=== PATIENT | female | born 1935 | race Caucasian/White ===

== ENCOUNTER 2017-07-24 11:42 | Outpatient (CLI) | payer MEDICARE, BC | END 2017-07-24 11:43 | disposition home or self-care (01) | LOC: BICMAMMO 11:42 | PROVIDERS: ATTEND Family Medicine | DX: Z12.31 Encounter for screening mammogram for malignant neoplasm of breast (principal) | CPT/HCPCS: 77063; 77067 ==

== ENCOUNTER 2019-03-15 14:21 | Inpatient (IN) | payer MEDICARE, BC ==
--- NOTE | 2019-03-15 15:33 | CT ---
CT Brain WO Con: 03/15/2019 3:05 PM CLINICAL HISTORY: Abnormal labs, hyponatremia, hypokalemia. COMPARISON: None. FINDINGS: Hemorrhage: None. Ventricular system: Mild ex vacuo dilatation due to parenchymal atrophy. Cerebral parenchyma: Microvascular ischemic disease Midline shift: None. Mass: No mass effect. Calvarium: Normal. Visualized Paranasal sinuses: Clear. IMPRESSION: No acute intracranial abnormalities. Chronic findings are described above.
[2019-03-15 15:39] LABS: #Eosinphils 0.1 thou/uL (0.0-0.7); #Lymphocytes 0.6 thou/uL (1.20-3.40); #Monocytes 1.1 thou/uL (0.11-0.59); #Neutrophils 6.6 thou/uL (1.40-6.50); %Basophils 0.3 % (0.0-1.0); %Eosinophils 0.6 % (0.0-10.0); %Lymphocytes 7.2 % (21.0-51.0); %Monocytes 12.8 % (0.0-10.0); Hemoglobin 12.2 g/dL (12.0-16.0); Mean Corpuscular HGB CONC 35.5 g/dL (32.0-36.0); Mean Corpuscular Hemoglobin 33.3 pg (27.0-31.0); Mean Corpuscular Volume 93.8 fL (78.0-98.0); Mean Platelet Volume 7.3 fL (7.4-10.4); Platelet Count 237 thou/uL (130-400); RBC Distribution Width 11.4 % (11.5-14.5); Red Blood Cell (RBC) Count 3.68 mill/uL (4.20-5.40); White Blood Cell (WBC) Count 8.4 thou/uL (4.8-10.8)
[2019-03-15 15:55] LABS: ALT (SGPT) 25 U/L (8-55); AST (SGOT) 36 U/L (5-34); Albumin 3.5 g/dL (3.4-4.8); Alkaline Phosphatase 96 U/L (40-110); Anion Gap 16 mmol/L (10-20); BUN (Urea Nitrogen) 10 mg/dL (9.8-20.1); Bilirubin, Total 2.1 mg/dL (0.2-1.2); CK (CPK) 162 U/L (29-168); Calc. Creatinine Clearance 0 mL/min (70-130); Calcium 8.3 mg/dL (7.8-10.44); Carbon Dioxide 27 mmol/L (23-31); Chloride 77 mmol/L (98-107); Estimated GFR-MDRD Greater than 90; Globulin 2.7 g/dL (2.4-3.5); Glucose 87 mg/dL (83-110); Magnesium 1.9 mg/dL (1.6-2.6); Potassium 3.3 mmol/L (3.5-5.1); Protein, Total 6.2 g/dL (6.0-8.3)
[2019-03-15 15:59] LABS: Sodium 117 mmol/L (136-145)
[2019-03-15] MEDS ORDERED: Magnesium 2 GM/50 ML BAG (IN WATER) ONE ×2 (16:42→17:00)
[2019-03-15] MEDS ORDERED: Sodium Chloride 3% 100 ML IVPB SCH ×2 (17:00)
[2019-03-15] MEDS ORDERED: Potassium Chloride 40 MEQ in Sodium Chloride 0.9% 250 ML 250 ML IVPB SCH (17:15)
[2019-03-15] MEDS ORDERED: Morphine 4 MG/ML VIAL ONE (17:40)
[2019-03-15 18:59] LABS: Anion Gap 15 mmol/L (10-20); BUN (Urea Nitrogen) 10 mg/dL (9.8-20.1); Calc. Creatinine Clearance 0 mL/min (70-130); Calcium 8.3 mg/dL (7.8-10.44); Carbon Dioxide 27 mmol/L (23-31); Chloride 79 mmol/L (98-107); Estimated GFR-MDRD Greater than 90; Glucose 73 mg/dL (83-110); Potassium 3.4 mmol/L (3.5-5.1)
[2019-03-15 19:05] LABS: Sodium 118 mmol/L (136-145)
[2019-03-15] MEDS: traMADol HCl 50 MG TAB PO PRN (20:55)
[2019-03-15] MEDS: Famotidine 20 MG TAB PO SCH (20:56)
[2019-03-15] MEDS ORDERED: Sodium Chloride 256 MEQ in Sterile Water Injection 936 ML IV SCH (21:45)
--- NOTE | 2019-03-15 22:10 | HP ---
CHIEF COMPLAINT: Hyponatremia. HISTORY OF PRESENT ILLNESS: This patient is an 84-year-old female, who says she was going to get her mail and rather than walking up the driveway, got across the yard, stepped in a hole, fell and broke her right shoulder. She had a hemiarthroplasty of the right shoulder performed at [facility]. She subsequently was transferred to the [facility] on Sunday 5 days ago. There the patient was having apparently some generalized weakness and labs were obtained revealing a sodium that was low at 125 on 03/12. It has been followed daily and as of today was down to 117 with steady decline over this 4 days. The patient was subsequently referred to the hospital Emergency Department for further evaluation. Repeat labs are again at 117. She currently says she really did not have any other specific symptoms of concern. She has been getting up with physical therapy and using a walker. Currently her only complaint is that she has some pain. She indicates that she had a fracture of her pelvis, which was nonoperable and her neck has been sore from her fall as well. The shoulder continues to give some pain. She has been taking p.o. tramadol for that. REVIEW OF SYSTEMS: Again, the patient is reporting the pain in the neck, right shoulder, and pelvis and hip area. On the right, she reports she does not eat a great deal and her and she has lost about 30 pounds over the last 3 years just simply from generally poor p.o. intake. PAST MEDICAL HISTORY: Notable for asthma, hypothyroidism, and the above-mentioned fall with right shoulder and pelvic fracture. PAST SURGICAL HISTORY: Appendectomy, hysterectomy, tonsillectomy, right shoulder hemiarthroplasty. FAMILY HISTORY: Mother had diabetes. Father was killed in an industrial accident when she was young. SOCIAL HISTORY: Nonsmoker, nondrinker, nondrug user. She is . She is full code. Her surrogate decision makers would be her and daughters. ALLERGIES: NONE. CURRENT MEDICATIONS: 1. Enoxaparin 40 mg subcutaneous daily. Famotidine 20 mg b.i.d. 2. Levothyroxine 88 mcg daily. 3. Magnesium 400 mg tablets 2 p.o. daily. Melatonin 3 mg at bedtime. 4. Polyethylene glycol p.r.n. 5. Potassium 10 mEq daily. 6. Tylenol p.r.n. 7. DuoNebs p.r.n. 8. Dulcolax p.r.n. 9. Calcium carbonate p.r.n. 10. Clonidine patch 0.1 mg per 24 hours q. week. Benadryl p.r.n. 11. Guaifenesin q.4 hours. 12. Lactulose 20 g t.i.d. 13. Loperamide p.r.n. 14. Magnesium p.o. daily. 15. Tramadol 50 mg q.6 hours p.r.n. pain. PHYSICAL EXAMINATION: VITAL SIGNS: BP 148/81, pulse 75, respirations 14, temperature is 97.7, O2 saturations 98% on room air. GENERAL APPEARANCE: Age-appropriate female, in no distress. She is awake, alert, oriented, pleasant, and cooperative. She does not appear to have any confusion. She is very small and frail and has significant kyphosis. HEART: Regular rate and rhythm. HEENT: PERRL, no OP lesions. Slightly dry oral mucosa. NECK: Supple and symmetric. HEART: Regular rate and rhythm without murmurs, gallops, or rubs. LUNGS: Clear, but slightly diminished. No wheezes or rales. ABDOMEN: Soft, nontender, and nondistended. Positive bowel sounds. No masses. No organomegaly. EXTREMITIES: Right shoulder has ecchymoses extending down the right upper extremity. There is postsurgical dressing. She is otherwise has some chronic stasis dermatitis appearance in both calves without significant edema or warmth. These areas are nontender. MUSCULOSKELETAL: Also reveals some slight tenderness in the soft tissue of the neck, more so on the right. PSYCHIATRIC: She appears to have normal affect and behavior. NEUROLOGIC: She appears to be cognitively intact and moving all extremities spontaneously with no focal deficits and cranial nerves are grossly intact. LABORATORY DATA: White count 8.4, hemoglobin 12.2, platelets 237. Sodium 117, potassium 3.3, chloride 77, CO2 of 27, BUN 10, creatinine 0.5, glucose 87, serum osmolality is 247, calcium 8.3, Mag 1.9, total bilirubin 2.1, AST 36, ALT 25, alkaline phosphatase 96. CK 162, troponin 0.01. Albumin 3.5. TSH is 1.1. IMAGING: Brain CT, no acute findings, chronic findings only. IMPRESSION AND PLAN: 1. Postoperative hyponatremia, likely due to syndrome of inappropriate antidiuretic hormone secretion. Consulting Nephrology to discuss case with her. She has hypertonic saline ordered from the ER, although that is currently being held. Nephrology is ordering stat urine osmolality and sodium, so we will try to wait on those results before giving hypertonic saline. It appears to have developed over several days. In the meantime, we will continue to have some fluid restriction and defer potential tolvaptan to Nephrology. 2. Mild hypokalemia, replete. 3. Right shoulder fracture. Continue PT, OT. 4. Pelvic fracture. Continue PT and pain management. 5. Hypothyroidism. We will keep her on her usual home medications. 6. History of asthma. We will provide p.r.n. nebulizer treatments. Job ID: [id number]
[2019-03-15 22:16] LABS: Sodium 121 mmol/L (136-145)
[2019-03-16] MEDS ORDERED: Sodium Chloride 256 MEQ in Sterile Water Injection 936 ML IV SCH ×2 (01:10→01:24)
[2019-03-16 01:17] LABS: Sodium 120 mmol/L (136-145)
[2019-03-16] MEDS: Acetaminophen 325 MG TAB PO PRN ×2 (01:48→15:30)
[2019-03-16] MEDS: traMADol HCl 50 MG TAB PO PRN ×4 (03:06→20:12)
[2019-03-16 06:18] LABS: Sodium 118 mmol/L (136-145)
[2019-03-16 09:00] LABS: Sodium 119 mmol/L (136-145)
[2019-03-16] MEDS: Famotidine 20 MG TAB PO SCH ×2 (10:13→20:12)
[2019-03-16] MEDS: Potassium Chloride 10 MEQ TAB PO SCH (10:14)
[2019-03-16] MEDS: Enoxaparin Sodium 40 MG/0.4 ML SYRINGE SC SCH (10:14)
[2019-03-16 12:13] LABS: Sodium 119 mmol/L (136-145)
--- NOTE | 2019-03-16 16:05 | PDOC.HOSPP ---
- Subjective Subjective: Doing ok. Had to get some pain meds this morning. - Objective Vital Signs & Weight: Vital Signs (12 hours) Temp Pulse Resp BP Pulse Ox 03/16/19 12:00 96.5 F L 104 H 18 139/82 03/16/19 08:00 97.6 F 92 16 148/84 H 96 Weight Weight 75 lb 8 oz I&O: 03/15/19 03/16/19 03/17/19 06:59 06:59 06:59 Intake Total 240 Balance 240 Result Diagrams: 03/15/19 15:20 03/16/19 11:33 Hospitalist ROS - Medication Medications: Active Medications Generic Name Dose Route Start Last Admin Trade Name Freq PRN Reason Stop Dose Admin Acetaminophen 650 mg 03/15/19 18:05 03/16/19 15:30 Tylenol PO 650 mg Q4H PRN Administration Headache/Fever/Mild Pain (1-3) Enoxaparin Sodium 40 mg 03/16/19 09:00 03/16/19 10:14 Lovenox SC 40 mg 0900 BLU Administration Famotidine 20 mg 03/15/19 21:00 03/16/19 10:13 Pepcid PO 20 mg BID BLU Administration Potassium Chloride 10 meq 03/16/19 08:00 03/16/19 10:14 Klor-Con 10 PO 10 meq QAM-WM BLU Administration Tramadol HCl 50 mg 03/15/19 18:14 03/16/19 13:10 Ultram PO 50 mg Q6H PRN Administration Moderate to Severe Pain (6-10) - Exam General Appearance: NAD, awake alert General - other findings: Frail. Slightly groggy. Heart: RRR, no murmur, no gallops, no rubs, normal peripheral pulses Respiratory: CTAB, no wheezes, no rales, no ronchi, normal chest expansion, no tachypnea, normal percussion Gastrointestinal: soft, non-tender, non-distended, normal bowel sounds, no palpable masses, no hepatomegaly, no splenomegaly, no bruit Extremities: no cyanosis, no clubbing, no edema Skin: normal turgor Musculoskeletal - other findings: Severe kyphosis. Psychiatric: normal affect, normal behavior, somnolent Hosp A/P (1) Hyponatremia Code(s): E87.1 - HYPO-OSMOLALITY AND HYPONATREMIA Status: Acute (2) Status post right shoulder hemiarthroplasty Code(s): Z96.611 - PRESENCE OF RIGHT ARTIFICIAL SHOULDER JOINT Status: Acute (3) Hypokalemia Code(s): E87.6 - HYPOKALEMIA Status: Resolved (4) Hypothyroidism Code(s): E03.9 - HYPOTHYROIDISM, UNSPECIFIED Status: Acute (5) Pelvic fracture Code(s): S32.9XXA - FRACTURE OF UNSP PARTS OF LUMBOSACRAL SPINE AND PELVIS, INIT Status: Acute - Plan Consulted Nephrology. Dr. Cool managing the hyponatremia. Using great caution to go slow with correction. Continue pain management. PT/OT.
[2019-03-16] MEDS ORDERED: Calcium Carbonate 500 MG ChewTAB PO PRN (16:10)
[2019-03-16] MEDS ORDERED: Bisacodyl 10 MG SUPP PR PRN (16:10)
[2019-03-16] MEDS ORDERED: Milk Of Magnesia 30 ML UDCUP PO PRN (16:10)
[2019-03-16] MEDS ORDERED: Senokot 8.6 MG TAB PO PRN (16:11)
[2019-03-16 16:23] LABS: Sodium 121 mmol/L (136-145)
--- NOTE | 2019-03-16 19:48 | PRG ---
DATE OF SERVICE: 03/16/2019 SUBJECTIVE: The patient was seen and examined, seems to be feeling much more alert, noted with the following vital signs. OBJECTIVE: VITAL SIGNS: Afebrile. Temperature 96.5, pulse 104, respiratory rate of 18, O2 saturation of 96% with blood pressure 139/82. HEENT: Unremarkable. CARDIOVASCULAR: First and second sounds were heard. RESPIRATORY SYSTEM: Clear to auscultation. DIGESTIVE SYSTEM: A benign abdomen with positive bowel sounds. EXTREMITIES: No peripheral edema. SKIN: No new gross rash. LYMPHATICS: No peripheral lymphadenopathy. LABORATORY INVESTIGATION: Showed a sodium of 121. IMPRESSION AND PLAN: 1. Severe symptomatic hyponatremia seems to be improving on 1.5% saline. 2. We will continue with current measures including regular diet with increased protein intake. 3. Further management to be dependent on the clinical course. Job ID: [id number]
[2019-03-16] MEDS: Sodium Chloride 256 MEQ in Sterile Water Injection 936 ML IV SCH (20:13)
[2019-03-16 20:42] LABS: Sodium 124 mmol/L (136-145)
[2019-03-17 00:39] LABS: Sodium 125 mmol/L (136-145)
[2019-03-17 05:35] LABS: Sodium 135 mmol/L (136-145)
[2019-03-17] MEDS: traMADol HCl 50 MG TAB PO PRN ×2 (06:29→20:56)
[2019-03-17 07:40] LABS: Sodium 128 mmol/L (136-145)
[2019-03-17] MEDS: Enoxaparin Sodium 40 MG/0.4 ML SYRINGE SC SCH (08:35)
[2019-03-17] MEDS: Potassium Chloride 10 MEQ TAB PO SCH (08:35)
[2019-03-17] MEDS: Famotidine 20 MG TAB PO SCH ×2 (08:35→20:56)
[2019-03-17] MEDS: Magnesium Oxide 400 MG TAB PO SCH (08:35)
[2019-03-17] MEDS: Acetaminophen 325 MG TAB PO PRN (08:51)
--- NOTE | 2019-03-17 10:58 | CON ---
DATE OF CONSULTATION: CONSULTING PHYSICIAN: Dr. Everton Cool. REQUESTING PHYSICIANS: Dr. Roldan and Dr. Burt. REASON FOR CONSULTATION: Worsening hyponatremia. IMPRESSION: 1. Severe hyponatremia query cause multifactorial in etiology. 2. Malnutrition . PLAN: 1. The exact etiology of this patient's hyponatremia and the type of hyponatremia could not be identified however, the patient according to family seems to show some change in mental status. There fore we will treat this hyponatremia as being symptomatic. The patient does not have any central access, we will therefore use 1.5% saline with close sodium monitoring sodium change of about 1 milliequivalent every 2 hours. 2. Resume diet, we prefer this patient to be on regular diet with high protein intake in view of . 3. For now, we will discontinue fluid restriction. 4. Further management will be dependent on the clinical course. HISTORY OF PRESENT ILLNESS: History is that of an 84-year-old female patient, who recently sustained right shoulder fracture, status post mechanical fall, did undergo hemiarthroplasty and subsequently sent over to rehab. The patient started complaining of weakness for which laboratory investigation was done and showed a sodium of 124. Over the course of few days, sodium has drifted down to 117 necessitating the transfer to the acute facility. According to the family, the patient seems to have some degree of confusion. Generalized weakness seems to be getting worse. Of note, the patient did have diarrhea and has not been eating very well, so severe hyponatremia resulting in some symptoms. Decision has been taken to involve Renal in the management of this case. PAST MEDICAL HISTORY: Significant for asthma, hypothyroidism, recent right shoulder fracture status post hemiarthroplasty. FAMILY HISTORY: Nonsignificant only related to the present illness. SOCIAL HISTORY: No alcohol. No tobacco. No illicit drug use. ALLERGIES: NO KNOWN DRUG ALLERGIES. REVIEW OF SYSTEMS: Somewhat limited. Otherwise, the much I could get nonsignificant related to the present illness present as documented in the body of the history. LABORATORY INVESTIGATION: Significant for sodium of 117. PHYSICAL EXAMINATION: GENERAL: The patient was noted to be cachectic with the following vital signs. VITAL SIGNS: Afebrile, temperature 98, pulse 72, respiratory rate of 16, and O2 saturation of 96% with a blood pressure of 160/79. HEENT: Remarkable for dry oral mucosa. NECK: Supple. CARDIOVASCULAR SYSTEM: First and second heart sounds were heard. RESPIRATORY SYSTEM: Clear to auscultation. DIGESTIVE SYSTEM: Revealed a benign abdomen. EXTREMITIES: No peripheral edema. SKIN: No new gross rash. LYMPHATICS: No peripheral lymphadenopathy. IMPRESSION: 1. Severe symptomatic hyponatremia, likely multifactorial etiology. 2. Mild hypokalemia. SUMMARY: An 84-year-old female patient, who presented here with worsening hyponatremia. Thank you for this consultation. We will follow with you. Job ID: [id number]
[2019-03-17] MEDS: Acetaminophen/Codeine 30-300mg Tablet PO PRN ×3 (11:21→17:40)
[2019-03-17 11:48] LABS: Sodium 126 mmol/L (136-145)
--- NOTE | 2019-03-17 15:22 | PQF ---
CLINICAL DOCUMENTATION IMPROVEMENT CLARIFICATION FORM: ICD-10 Updated PLEASE DO AN ADDENDUM TO THE PROGRESS NOTE WITH ANY DOCUMENTATION UPDATES OR ADDITIONS AND CARRY THROUGH TO DC SUMMARY. THANK YOU. Date: 03/17/2019 ATTN: Dr. Roldan Please exercise your independent, professional judgment in responding to the clarification form. Clinical indicators are provided on the bottom of this form for your review Please check appropriate box(s): [x ] Protein Calorie Malnutrition: [ ] Mild [x ] Moderate [ ] Severe [ ] Other Malnutrition (please specify) [ ] Underweight without malnutrition [ ] Cachexia [ ] Other diagnosis [ ] Unable to determine In addition, please specify: Present on Admission (POA): [ x ] Yes [ ] No [ ] Unable to determine CLINICAL INDICATORS - SIGNS / SYMPTOMS / LABS ER Record 03/15: PE Pt appears thin, cachectic and chronically ill Speech Language Pathologist Travel Assessment 03/17: -12% from [facility] in 1 week per pt. Nutritiion Dx: Malnutrition r/t unknown etiology as evidenced by severe muscle wasting, severe fat loss, suspected inadequate PO intake meeting <75% of estimated nutritional needs, reported 12% wt loss in 1 week suggestive of severe malnutrition in the context of acute/chronic disease RISKS: H&P 03/15: Hyponatremia. 84 yo. She had a hemiarthroplasty of the r shoulder performed at [facility] and transferred to Rehab on Sunday 5 days ago. She reports she does not eat a great deal - she has lost 30 pounds over the last 3 yrs just simply from generally poor po intake TREATMENT: Speech Language Pathologist Travel Assessment triggered for BMI 16.9 03/16 (Silvina): We will continue with current measures including regular diet with increased protein intake Moderate Malnutrition (in acute illness) Energy Intake: <75% of estimated energy requirement for > 7 days Weight Loss: 1-2%/1 week; 5%/ 1 month; 7.5%/3 months Other: mild body fat loss; mild muscle mass loss; mild fluid accumulation; Severe Malnutrition (in acute illness) Energy Intake: < 50% of estimated energy requirement for > 5 days Weight Loss: >1-2%/1 week; >5%/1 month; >7.5%/3 months Other: moderate body fat loss; moderate muscle mass loss; moderate- severe fluid accumulation; measurably reduced transportation economics teacher strength Moderate Malnutrition (in chronic illness) Energy Intake: <75% of estimated energy requirement for >1 month Weight Loss: 5%/1 month; 7.5%/3 months; 10%/6 months; 20%/1 year Other: mild body fat loss; mild muscle mass loss; mild fluid accumulation Severe Malnutrition (in chronic illness) Energy Intake: <75% of estimated energy requirement for >1 month Weight Loss: >5%/1 month; >7.5%/3 months; >10%/6 months; >20%/1 year Other: severe body fat loss; severe muscle mass loss; severe fluid accumulation; measurably reduced transportation economics teacher strength Thank you, Joanne (This form is maintained as a part of the permanent medical record) 2015 [employer] All Rights Reserved Joanne Belle RN, BSN [email or web address] Office: [phone] [facility]
[2019-03-17] MEDS: Sodium Chloride 256 MEQ in Sterile Water Injection 936 ML IV SCH (15:40)
[2019-03-17] MEDS ORDERED: Tolvaptan 15 MG TAB PO SCH (16:00)
--- NOTE | 2019-03-17 17:30 | PDOC.HOSPP ---
- Subjective Subjective: Still having some pain issues. Current meds not quite enough. Complains of dry skin of the face. - Objective Vital Signs & Weight: Vital Signs (12 hours) Temp Pulse Pulse Pulse Resp BP BP 03/17/19 15:43 97.6 F 98 18 03/17/19 14:47 92 18 03/17/19 11:23 97.6 F 98 24 H 03/17/19 10:50 97 99 157/87 H 140/80 03/17/19 10:34 97 99 157/87 H 140/80 03/17/19 07:17 98.2 F 99 19 BP Pulse Ox 03/17/19 15:43 134/68 100 03/17/19 14:47 99 03/17/19 11:23 142/78 H 96 03/17/19 10:50 03/17/19 10:34 03/17/19 07:17 130/72 95 Weight Admit Weight 75 lb 8 oz Weight 75 lb 8 oz I&O: 03/16/19 03/17/19 03/18/19 06:59 06:59 06:59 Intake Total 2053 Output Total 700 Balance 1353 Result Diagrams: 03/15/19 15:20 03/17/19 11:26 Hospitalist ROS - Medication Medications: Active Medications Generic Name Dose Route Start Last Admin Trade Name Bob PRN Reason Stop Dose Admin Acetaminophen 650 mg 03/15/19 18:05 03/17/19 08:51 Tylenol PO 650 mg Q4H PRN Administration Headache/Fever/Mild Pain (1-3) Acetaminophen/Codeine Phosphate 1 tab 03/17/19 11:04 03/17/19 14:08 Tylenol #3 PO 1 tab Q4H PRN Administration Moderate Pain (4-6) Albuterol/Ipratropium 3 ml 03/15/19 18:25 03/17/19 14:47 Duoneb NEB 3 ml Q2H PRN Administration SOB &/or Wheezing Enoxaparin Sodium 40 mg 03/16/19 09:00 03/17/19 08:35 Lovenox SC 40 mg 0900 BLU Administration Famotidine 20 mg 03/15/19 21:00 03/17/19 08:35 Pepcid PO 20 mg BID BLU Administration Magnesium Oxide 800 mg 03/17/19 09:00 10/07/19 08:35 Magnesium Oxide PO 800 mg DAILY BLU Administration Potassium Chloride 10 meq 03/16/19 08:00 03/17/19 08:35 Klor-Con 10 PO 10 meq QAM-WM BLU Administration Tramadol HCl 50 mg 03/15/19 18:14 03/17/19 06:29 Ultram PO 50 mg Q6H PRN Administration Moderate to Severe Pain (6-10) - Exam General Appearance: NAD, awake alert Heart: RRR, no murmur, no gallops, no rubs, normal peripheral pulses Respiratory: CTAB, no wheezes, no rales, no ronchi, normal chest expansion, no tachypnea, normal percussion Gastrointestinal: soft, non-tender, non-distended, normal bowel sounds, no palpable masses, no hepatomegaly, no splenomegaly, no bruit Skin: normal turgor Musculoskeletal: diffuse muscle atrophy Psychiatric: normal affect, normal behavior, A&O x 3 Hosp A/P (1) Hyponatremia Code(s): E87.1 - HYPO-OSMOLALITY AND HYPONATREMIA Status: Acute (2) Status post right shoulder hemiarthroplasty Code(s): Z96.611 - PRESENCE OF RIGHT ARTIFICIAL SHOULDER JOINT Status: Acute (3) Hypokalemia Code(s): E87.6 - HYPOKALEMIA Status: Resolved (4) Hypothyroidism Code(s): E03.9 - HYPOTHYROIDISM, UNSPECIFIED Status: Acute (5) Pelvic fracture Code(s): S32.9XXA - FRACTURE OF UNSP PARTS OF LUMBOSACRAL SPINE AND PELVIS, INIT Status: Acute (6) Seborrheic dermatitis Code(s): L21.9 - SEBORRHEIC DERMATITIS, UNSPECIFIED Status: Acute - Plan Consulted Nephrology. Dr. Cool managing the hyponatremia. Using great caution to go slow with correction. Continue pain management. Add Tylenol #3. PT/OT.
--- NOTE | 2019-03-17 18:15 | PRG ---
DATE OF SERVICE: 03/17/2019 SUBJECTIVE: The patient was seen and examined, noted with following vital signs. OBJECTIVE: VITAL SIGNS: Afebrile, temperature 97.6, pulse 98, respiratory rate of 18, O2 saturation 100% with blood pressure 134/68. HEENT: Unremarkable. CARDIOVASCULAR SYSTEM: First and second heart sounds were heard. RESPIRATORY SYSTEM: Clear to auscultation. DIGESTIVE SYSTEM: Benign abdomen. EXTREMITIES: No peripheral edema. SKIN: No new gross rash. LYMPHATICS: No peripheral lymphadenopathy. LABORATORY INVESTIGATION: Sodium level that is very labile today. Repeat urine chemistry consistent with SIADH. PLAN: 1. Hypertonic saline discontinued. 2. We will start this patient on tolvaptan. 3. Increase protein intake is strongly recommended. 4. Further management to be dependent on the clinical course. Job ID: [id number]
[2019-03-18] MEDS: Acetaminophen/Codeine 30-300mg Tablet PO PRN ×5 (00:29→22:47)
[2019-03-18] MEDS: Melatonin 3 MG TAB PO PRN ×2 (00:34→22:47)
[2019-03-18] MEDS: Potassium Chloride 10 MEQ TAB PO SCH (08:12)
[2019-03-18] MEDS: Magnesium Oxide 400 MG TAB PO SCH (08:13)
[2019-03-18] MEDS: Enoxaparin Sodium 40 MG/0.4 ML SYRINGE SC SCH (08:13)
[2019-03-18] MEDS: Famotidine 20 MG TAB PO SCH ×2 (08:13→20:42)
[2019-03-18] MEDS: Ketoconazole 2% Cream 15 gm Tube TOP SCH (08:14)
[2019-03-18] MEDS ORDERED: Tolvaptan 15 MG TAB PO SCH (09:00)
[2019-03-18 09:43] LABS: Anion Gap 12 mmol/L (10-20); BUN (Urea Nitrogen) 8 mg/dL (9.8-20.1); Calc. Creatinine Clearance 53 mL/min (70-130); Calcium 8.5 mg/dL (7.8-10.44); Carbon Dioxide 25 mmol/L (23-31); Chloride 101 mmol/L (98-107); Estimated GFR-MDRD Greater than 90; Glucose 92 mg/dL (83-110); Potassium 4.2 mmol/L (3.5-5.1); Sodium 134 mmol/L (136-145)
[2019-03-18] MEDS ORDERED: Metoprolol Tartrate 50 MG TAB PO SCH (10:15)
--- NOTE | 2019-03-18 16:27 | PDOC.HOSPP ---
- Subjective Subjective: Feels well today. No complaints. - Objective Vital Signs & Weight: Vital Signs (12 hours) Temp Pulse Resp BP Pulse Ox 03/18/19 12:59 83 16 96 03/18/19 11:12 98.4 F 86 19 148/89 H 99 03/18/19 07:35 96 03/18/19 06:58 97.8 F 95 17 143/79 H 96 Weight Admit Weight 75 lb 8 oz Weight 91 lb 12.8 oz I&O: 03/17/19 03/18/19 03/19/19 06:59 06:59 06:59 Intake Total 2053 720 Output Total 700 2200 Balance 1353 -1480 Result Diagrams: 03/15/19 15:20 03/18/19 09:20 Hospitalist ROS - Medication Medications: Active Medications Generic Name Dose Route Start Last Admin Trade Name Freq PRN Reason Stop Dose Admin Acetaminophen 650 mg 03/15/19 18:05 03/17/19 08:51 Tylenol PO 650 mg Q4H PRN Administration Headache/Fever/Mild Pain (1-3) Acetaminophen/Codeine Phosphate 1 tab 03/17/19 11:04 03/18/19 12:28 Tylenol #3 PO 1 tab Q4H PRN Administration Moderate Pain (4-6) Albuterol/Ipratropium 3 ml 03/15/19 18:25 03/18/19 12:59 Duoneb NEB 3 ml Q2H PRN Administration SOB &/or Wheezing Enoxaparin Sodium 40 mg 03/16/19 09:00 03/18/19 08:13 Lovenox SC 40 mg 0900 BLU Administration Famotidine 20 mg 03/15/19 21:00 03/18/19 08:13 Pepcid PO 20 mg BID BLU Administration Ketoconazole 1 gm 03/18/19 09:00 03/18/19 08:14 Nizoral 2% Cream TOP 1 applic DAILY BLU Administration Magnesium Oxide 800 mg 03/17/19 09:00 03/18/19 08:13 Magnesium Oxide PO 800 mg DAILY BLU Administration Melatonin 3 mg 03/15/19 18:13 03/18/19 00:34 Melatonin PO 3 mg HS PRN Administration Insomnia Potassium Chloride 10 meq 03/16/19 08:00 03/18/19 08:12 Klor-Con 10 PO 10 meq QAM-WM BLU Administration Tramadol HCl 50 mg 03/15/19 18:14 03/17/19 20:56 Ultram PO 50 mg Q6H PRN Administration Moderate to Severe Pain (6-10) - Exam Heart: RRR, no murmur, no gallops, no rubs, normal peripheral pulses Respiratory: CTAB, no wheezes, no rales, no ronchi, normal chest expansion, no tachypnea, normal percussion Gastrointestinal: soft, non-tender, non-distended, normal bowel sounds, no palpable masses, no hepatomegaly, no splenomegaly, no bruit Skin: normal turgor Musculoskeletal: normal tone Psychiatric: normal affect, normal behavior, A&O x 3 Hosp A/P (1) Hyponatremia Code(s): E87.1 - HYPO-OSMOLALITY AND HYPONATREMIA Status: Acute (2) Status post right shoulder hemiarthroplasty Code(s): Z96.611 - PRESENCE OF RIGHT ARTIFICIAL SHOULDER JOINT Status: Acute (3) Hypokalemia Code(s): E87.6 - HYPOKALEMIA Status: Resolved (4) Hypothyroidism Code(s): E03.9 - HYPOTHYROIDISM, UNSPECIFIED Status: Acute (5) Pelvic fracture Code(s): S32.9XXA - FRACTURE OF UNSP PARTS OF LUMBOSACRAL SPINE AND PELVIS, INIT Status: Acute (6) Seborrheic dermatitis Code(s): L21.9 - SEBORRHEIC DERMATITIS, UNSPECIFIED Status: Acute - Plan Consulted Nephrology. Dr. Cool managing the hyponatremia. Much improved. Continue pain management. Added Tylenol #3. PT/OT. Return to IR[facility].
[2019-03-18] MEDS: traMADol HCl 50 MG TAB PO PRN (20:42)
[2019-03-18] MEDS: Metoprolol Tartrate 50 MG TAB PO SCH (20:42)
[2019-03-19] MEDS: traMADol HCl 50 MG TAB PO PRN ×2 (09:24→20:25)
[2019-03-19] MEDS: Potassium Chloride 10 MEQ TAB PO SCH (09:24)
[2019-03-19] MEDS: Magnesium Oxide 400 MG TAB PO SCH (09:25)
[2019-03-19] MEDS: Ketoconazole 2% Cream 15 gm Tube TOP SCH (09:25)
[2019-03-19] MEDS: Metoprolol Tartrate 50 MG TAB PO SCH (09:25)
[2019-03-19] MEDS: Famotidine 20 MG TAB PO SCH (09:25)
[2019-03-19] MEDS: Enoxaparin Sodium 40 MG/0.4 ML SYRINGE SC SCH (09:26)
[2019-03-19 12:44] VITALS: BMI 18.6
[2019-03-19 15:21] VITALS: TEMP 97.7
[2019-03-19] MEDS: Acetaminophen/Codeine 30-300mg Tablet PO PRN (16:53)
--- NOTE | 2019-03-19 20:52 | PRG ---
DATE OF SERVICE: 03/19/2019 SUBJECTIVE: The patient was seen and examined, is remarkably doing very well and noted with the following vital signs. OBJECTIVE: VITAL SIGNS: Afebrile, temperature 97.7, pulse 76, respiratory rate of 20, O2 saturation of 97%, and blood pressure 116/56. HEENT: Unremarkable. CARDIOVASCULAR SYSTEM: First and second heart sounds were heard. RESPIRATORY SYSTEM: Clear to auscultation. DIGESTIVE SYSTEM: Revealed a benign abdomen. EXTREMITIES: No peripheral edema. SKIN: No new gross rash. LYMPHATICS: No peripheral lymphadenopathy. IMPRESSION: Hyponatremia in the context of syndrome of inappropriate antidiuretic hormone secretion, doing very well. PLAN: 1. The patient to continue with increased protein intake. 2. We will be monitoring the electrolyte especially sodium at least once a week. 3. Further management to be dependent on the clinical course. Job ID: [id number]
[2019-03-19 23:10] VITALS: BP 111/63
--- NOTE | 2019-03-20 09:15 | PRG ---
DATE OF SERVICE: 03/18/2019 SUBJECTIVE: The patient was seen and examined, doing much better, noted with the following vital signs. OBJECTIVE: VITAL SIGNS: Afebrile, temperature 97.7, pulse 86, respiratory rate of 19, O2 saturation 97%, and blood pressure 139/58. HEENT: Unremarkable. CARDIOVASCULAR SYSTEM: First and second heart sounds heard. RESPIRATORY SYSTEM: Clear to auscultation. DIGESTIVE SYSTEM: Benign abdomen. Positive bowel sounds. IMPRESSION: 1. Discontinue . 2. Continue increased protein intake p.o. 3. Further management to be dependent on the clinical course. Job ID: [id number]
== END 2019-03-19 20:40 | DRG 644 ==
LOC: ERS 14:21 → 2NO 19:43
PROVIDERS: ADMIT Internal Medicine; ATTEND Internal Medicine
DX: E22.2 Syndrome of inappropriate secretion of antidiuretic hormone (principal); E44.0 Moderate protein-calorie malnutrition; Z68.1 Body mass index [BMI] 19.9 or less, adult; E87.6 Hypokalemia; J45.909 Unspecified asthma, uncomplicated; E03.9 Hypothyroidism, unspecified; Z96.611 Presence of right artificial shoulder joint; L21.9 Seborrheic dermatitis, unspecified; S32.9XXD Fracture of unspecified parts of lumbosacral spine and pelvis, subsequent encounter for fracture with routine healing; X58.XXXD Exposure to other specified factors, subsequent encounter; Z88.0 Allergy status to penicillin; Z88.2 Allergy status to sulfonamides; Z79.899 Other long term (current) drug therapy; Z79.01 Long term (current) use of anticoagulants; Z79.890 Hormone replacement therapy; Z90.710 Acquired absence of both cervix and uterus
CPT/HCPCS: 36415; 70450; 80048; 82550; 83735; 83930; 83935; 84295; 84300; 84443; 84484; 85025; 93005; 93306; 94640; 96365; 96367; 96375; A4217; J1650; J2270; J3475; J3480; J7050; J7131; J7620